=== PATIENT | male | born 1955 | race Caucasian/White ===

== ENCOUNTER 2019-02-08 22:54 | Emergency (ER) | payer SELFPAY ==
[~2019-02-08] VITALS: Ht 180.3 cm; Wt 74.4 kg
[2019-02-08 23:05] VITALS: BP 125/69
--- NOTE | 2019-02-08 23:05 | NUR ---
63 Y/O MALE RIGHT FOOT INFECTION , PT HE JUST NEEDS "ANTIBIOTICS", PT STATES HE HAS HAD WOUND TO FOOT SINCE SEPTEMBER. A/OX4 FOLLOWS COMMANDS. RIGHT FOOT: LARGE SORE WITH RED EDGES NOTED; PURULENT DRAINAGE AND ODOR. SOLE OF RIGHT FOOT: CLOSED WOUND WITH YELLOW EDGES NOTED. 10/10 ACUTE/SHARP PAIN RADIATING TO THE HEEL OF FOOT. +2 PEDAL PULSES; ERMD MADE AWARE. SIDE RAILSX1. WILL CONTINUE TO MONITOR. PMH DM RX:[email or web address]
[2019-02-08] MEDS ORDERED: LEVOFLOXACIN 500 MG/D5W PREMIX 100 ML IV ONE (23:25)
[2019-02-08] MEDS ORDERED: NACL 0.9% 2,500 ML IV ONE (23:25)
[2019-02-08] MEDS ORDERED: VANCOMYCIN 1,000 MG in DEXTROSE 5% 250 ML IV ONE (23:25)
--- NOTE | 2019-02-08 23:30 | NUR ---
PT. REFUSED IV INSERTION AND TREATMENT. ERMD MADE AWARE.
--- NOTE | 2019-02-08 23:40 | NUR ---
PT LEFT AMA. ERMD EDUCATED PT REGARDING RISKS OF LEAVING AMA. PT VERBALIZED UNDERSTANDING OF TEACHING.
== END 2019-02-08 23:40 | disposition left against medical advice (07) ==
LOC: MED 22:54
DX: L03.115 Cellulitis of right lower limb (principal); L97.419 Non-pressure chronic ulcer of right heel and midfoot with unspecified severity
CPT/HCPCS: 99281; 99283